=== PATIENT | male | born 1995 | race Caucasian/White ===

== ENCOUNTER 2022-10-09 16:43 | Emergency (ER) | payer SELFPAY ==
--- NOTE | ~2022-10-09 | CT_ITS ---
EXAMINATION: CT head/brain wo IV con CLINICAL INFORMATION: Reason for Exam new onset seizure COMPARISON: None. TECHNIQUE: Contiguous axial imaging was performed from the skull base to vertex without intravenous contrast. Sagittal and coronal reformatted images were obtained. This CT examination was performed using dose optimization techniques as appropriate, variously including the following: * Automated exposure control * Adjustment of mA and/or kV according to patient size (this includes techniques or standardized protocols for targeted exams where dose is matched to indication/reason for exam; i.e. extremities or head) Use of iterative reconstruction technique DLP: 752 mGy-cm FINDINGS: No acute osseous or soft tissue abnormality. The mastoid air cells and visualized portions of the paranasal sinuses are well aerated. There is no evidence of acute intracranial hemorrhage or territorial infarction. No abnormal mass effect or midline shift is seen. Cuevas to white matter differentiation is well preserved. No extra-axial fluid collections are identified. No hydrocephalus. CT/CT head/brain wo IV con IMPRESSION: 1. No acute intracranial abnormality.
[2022-10-09 16:53] VITALS: BP 142/93; BP 143/85; PULSE 107; PULSE 115; RESP 18; TEMP 36.7; O2SAT 100; BMI 23.0
--- NOTE | 2022-10-09 17:10 | PC.NURSE ---
patient a/ox4 . pupils dilated . heart rate regular at 105 beats per minute . breathing even and unlabored . lungs clear throughout . skin pink warm and dry abdomen soft . positive bowel sounds in all four quadrants . patient placed on gate agent . patient placed on seaizure precautions . patient aware of plan of care .
--- NOTE | 2022-10-09 17:11 | ED.SEIZURE ---
HPI - Seizure General Chief Complaint: Seizure Stated Complaint: From home, seizure 2 hrs ago per EMS Time Seen by Provider: 10/09/22 17:03 Source: patient Mode of arrival: EMS Limitations: no limitations History of Present Illness HPI Narrative: Patient with no significant medical history was at home when he had a dinner stone including seizure lasted for 5 minute with postictal combativeness and confusion patient fell to the ground without any significant head injury patient did not sleep well last night had some alcohol no history of use of Wellbutrin/cocaine/tramadol family history of seizures no history of significant head injury Seizure History: No Place: Home Related Data Previous Rx's Medication Instructions Recorded levetiracetam 500 mg tablet 500 mg PO BID #60 tabs 10/09/22 (Keppra) Allergies Allergy/AdvReac Type Severity Reaction Status Date / Time No Known Allergies Allergy Verified 10/09/22 17:42 Review of Systems Review of Systems: Yes all other systems are reviewed and are negative [facility] Social History Social History Smoked in Last 30 Days: No Substance Use Type: Crack/Cocaine and Marijuana Advance Directives: No Advance Directives Information Provided: No Physical Exam Vital Signs: Vital Signs: Last Vital Signs Temp 98.0 F 10/09/22 16:53 Pulse 95 10/09/22 19:43 Resp 16 10/09/22 19:43 BP 108/64 10/09/22 19:43 Pulse Ox 98 10/09/22 19:43 O2 Del Method 10/09/22 19:43 BMI result Body Mass Index 23.0 Appearance: Alert. Oriented X3. No acute distress. Eyes: PERRLA, No Nystagmus ENT: Pharynx normal. Oral Mucosa moist no tongue bite Neck: Normal inspection. Neck supple. CVS: Normal heart rate and rhythm. Pulses normal. Respiratory: No respiratory distress. Equal air entry bilateral, no wheezing/rales/rhonchi Abdomen: Soft and nontender. Bowel sounds are present, no mass palpable, no CVA tenderness Skin: Skin warm and dry. Normal skin color. Normal skin turgor. Extremities: No lower extremity edema. No calf tenderness Neuro: Oriented X 3. No motor deficit. No sensory deficit.No cerebellar signs , cranial nerves II-XII intact Medications Administered Discontinued Medications Generic Name Dose Route Start Last Admin Trade Name Freq PRN Reason Stop Dose Admin Levetiracetam 1,500 mg in 100 mls @ 400 mls/hr 10/09/22 19:10 10/09/22 19:37 Keppra IV 10/09/22 19:24 Infused ONCE ONE Infusion Medical Decision Making Medical Decision Making [facility] Narrative: Patient with new onset seizure witnessed CT scan negative lab workup negative. Patient was given Keppra started on Keppra advised to follow with neurologist likely has idiopathic seizure Lab Data [facility] Lab Attestation statement: I reviewed the patient's lab results. 10/09/22 18:24 10/09/22 18:24 Labs: Lab Results 10/09/22 10/09/22 10/09/22 Range/Units 18:24 18:24 18:24 WBC 19.9 H (4.8-10.8) X10*3/uL RBC 4.95 (4.60-5.80) X10*6/uL Hgb 14.4 (14.0-18.0) g/dl Hct 43.1 (42.0-52.0) % MCV 87.1 (80.0-98.0) fL MCH 29.1 (27.0-33.0) pg MCHC 33.4 (31.0-36.0) g/dl RDW 13.1 (11.0-16.0) % Plt Count 309 (160-400) X10*3/uL MPV 10.0 (9.4-12.4) fL Immature Gran % (Auto) 1.1 H (0.0-0.4) % Neut % (Auto) 85.3 H (45-73) % Lymph % (Auto) 6.7 L (20-40) % [place] % (Auto) 6.6 (2-11) % Eos % (Auto) 0.0 (0-4) % Baso % (Auto) 0.3 (0-2) % Lymph # (Auto) 1.3 (1.2-4.9) X10*3/uL [place] # (Auto) 1.3 H (0.1-1.2) X10*3/uL Eos # (Auto) 0.0 (0.0-0.4) X10*3/uL Baso # (Auto) 0.1 (0.0-0.2) X10*3/uL Abs Immat Gran (auto) 0.21 H (0.00-0.03) X10*3/uL Absolute Neuts (auto) 16.9 H (2.0-8.3) x10*3/uL Absolute Nucleated RBC 0.000 (0.0-0.012) X10*3/uL Nucleated RBC % (auto) 0.0 (0.0-0.2) /100WBC Sodium 138 (135-145) mmol/L Potassium 5.0 (3.3-5.1) mmol/L Chloride 101 (96-108) mmol/L Carbon Dioxide 26 (22-29) mmol/L Anion Gap 16 (12-20) BUN 10 (9-16) mg/dL Creatinine 0.81 (0.5-1.4) mg/dL Estim Creat Clear Calc 147.5 Estimated GFR > 60 Random Glucose 96 (60-115) mg/dL Calcium 9.8 (8.4-10.2) mg/dL Magnesium 2.4 (1.6-2.6) mg/dL Total Bilirubin 0.5 (0.0-1.0) mg/dL AST 19 (5-37) U/L ALT 14 (0-40) U/L Alkaline Phosphatase 57 (39-117) U/L Total Protein 7.2 (6.5-8.0) g/dL Albumin 4.9 (3.5-5.0) g/dL Ethyl Alcohol < 10 mg/dL Discharge Plan Discharge Clinical Impression: Generalized seizure Patient Disposition: Home, Self-Care Instructions: New-Onset Seizure in Adults (ED) Additional Instructions: No driving until cleared by neurologist Avoid sleep deprivation Avoid alcohol use Follow with neurologist Taking medication for seizures as advised Prescriptions: New levetiracetam [Keppra] 500 mg tablet 500 mg PO BID Qty: 60 2RF Referrals: Natacha Sneed MD [Physician] - 3 days Stand Alone Forms: Work/School Release Interventions: ED Discharge Assessment Last Done: 10/09/22 20:34 Discharge Date/Time: 10/09/22 20:36
--- OUTSIDE RECORDS SUMMARY | 2022-10-09 17:14 | XMS_ITS | Continuity of Care Document ---
:1995 Author Organization [facility] Address [address] [place] [address]- Care Team Providers Name Role Phone Zeferino PAYNE, Yadira Primary Care Physician [place] [facility] 10[place]01/20 [facility] [address] [place] [address]- Allergies, Adverse Reactions, Alerts No Known Medication Allergies Substance Reaction Severity Status NKA Active Immunizations Given and Recorded Vaccine Date Status Refusal Reason influenza virus vaccine, inactivated1 11/21/19 Given 1Result Comment: [facility]#[id number] Medications Adderall By Mouth, 2 times a day, 0 Refills, Maintenance, 08/13/15 14:36:13 Start Date: 08/13/15 Status: OrderedFlonase 50 mcg/inh nasal spray 1 sprays, Nares, Both, 2 times a day, in each nostril, # 16 Gm, 1 Refills, Maintenance, 09/15/19 10:18:00 EST, [place], [id number], 1 sprays Nares, Both 2 times a day,Instr:in each nostril, 174.3, cm, 09/15/19 9:26:00 EST, Height Start Date: 09/15/19 Status: Ordered Problem List Condition Effective Dates Status Health Status Informant Anxiety(Confirmed) Active ADHD(Confirmed) Active Marijuana use(Confirmed) Active Vomiting(Confirmed) Active Social History Social History Type Response Smoking Status Never smoker; Tobacco user i n household: No entered on: 08/13/15 Sex
--- OUTSIDE RECORDS SUMMARY | 2022-10-09 17:14 | XMS_ITS | Continuity of Care Document ---
:1995 Author Organization [facility] Address [address] [place] [address]- Care Team Providers Name Role Phone Zeferino PAYNE, Yadira Primary Care Physician Encounter [facility] [place] Date(s): 08/29/20 - 09/28/20 [facility] [address] [place] [address]- Attending Physician: Jeny Martines Admitting Physician: AdmJeny escalera Referring Physician: AdmtrJeny Allergies, Adverse Reactions, Alerts No Known Medication Allergies Substance Reaction Severity Status NKA Active Immunizations Given and Recorded Vaccine Date Status Refusal Reason influenza virus vaccine, inactivated1 11/21/19 Given 1Result Comment: [facility]#[id number] Medications Adderall By Mouth, 2 times a day, 0 Refills, Maintenance, 08/13/15 14:36:13 Start Date: 08/13/15 Status: OrderedFlonase 50 mcg/inh nasal spray 1 sprays, Nares, Both, 2 times a day, in each nostril, # 16 Gm, 1 Refills, Maintenance, 09/15/19 10:18:00 EST, [place], [id number], 1 sprays Nares, Both 2 [...]
--- OUTSIDE RECORDS SUMMARY | 2022-10-09 17:14 | XMS_ITS | Continuity of Care Document ---
:1995 Author Organization [facility] Address [address] [place] [address]- Care Team Providers Name Role Phone Christopher Alec ARTHUR Primary Care Physician Encounter [facility] [place] [id number] Date(s): 09/12/19 - 09/22/19 [facility] [address] [place] [address]- [facility] Attending Physician: Jeny Martines Admitting Physician: Admtr, Jeny Referring Physician: Admtr, Ar8 Allergies, Adverse Reactions, Alerts No Known Medication Allergies Medications Adderall By Mouth, 2 times a day, 0 Refills, Maintenance, 08/13/15 14:36:13 Start Date: 08/13/15 Status: OrderedFlonase 50 mcg/inh nasal spray 1 sprays, Nares, Both, 2 times a day, in each nostril, # 16 Gm, 1 Refills, Maintenance, 09/15/19 10:18:00 EST, [place], [id number], 1 sprays Nares, Both 2 times a day,Instr:in each nostril, 174.3, cm, 09/15/19 9:26:00 EST, Height Start Date: 09/15/19 Status: Ordered Problem List Condition Effective Dates Status Health Status Informant Vomiting(Confirmed) Active Social History Social History Type Response Smoking Status Never smoker; Tobacco user i n household: No entered on: 08/13/15 Sex
--- OUTSIDE RECORDS SUMMARY | 2022-10-09 17:14 | XMS_ITS | Continuity of Care Document ---
:1995 Author Organization [facility] Address [address] [place] [address]- Care Team Providers Name Role Phone Zeferino PAYNE, Yadira Primary Care Physician En[place] [facility] [place] Date(s): 09/03/20 - 10/03/20 [facility] [address] [place] [address]- Allergies, Adverse Reactions, Alerts No Known Medication Allergies Substance Reaction Severity Status NKA Active Immunizations Given and Recorded Vaccine Date Status Refusal Reason influenza virus vaccine, inactivated1 11/21/19 Given 1Result Comment: [facility]#[id number] Medications Adderall By Mouth, 2 times a day, 0 Refills, Maintenance, 08/13/15 14:36:13 Start Date: 08/13/15 Status: OrderedFlonase 50 mcg/inh nasal spray 1 sprays, Nares, Both, 2 times a day, in each nostril, # 16 Gm, 1 Refills, Maintenance, 09/15/19 10:18:00 EST, [place], [id number], 1 sprays Nares, Both 2 [...]
--- OUTSIDE RECORDS SUMMARY | 2022-10-09 17:14 | XMS_ITS | Continuity of Care Document ---
:1995 Author Organization [facility] Address [address] [place] [address]- Care Team Providers Name Role Phone Alec White DO Primary Care Physician [place] [facility] [place] 11/21/19 - 11/28/19 [facility] [address] [place] [address]- [place] Encounter Diagnosis Marijuana use (Discharge Diagnosis) - 11/21/19 ADHD (Discharge Diagnosis) - 11/21/19 Anxiety (Discharge Diagnosis) - 11/21/19 Attending Physician: Alec White DO Allergies, Adverse Reactions, Alerts No Known Medication Allergies Substance Reaction Severity Status NKA Active Immunizations Given and Recorded Vaccine Date Status Refusal Reason influenza virus vaccine, inactivated1 11/21/19 Given 1Result Comment: [facility]#[id number] Medications Adderall By Mouth, 2 times a day, 0 Refills, Maintenance, 08/13/15 14:36:13 Start Date: 08/13/15 Status: OrderedFlonase 50 mcg/inh nasal spray 1 sprays, Nares, Both, 2 times a day, in each nostril, # 16 Gm, 1 Refills, Maintenance, 09/15/19 10:18:00 EST, [place], [id number], 1 sprays Nares, Both 2 times a day,Instr:in each nostril, 174.3, cm, 09/15/19 9:26:00 EST, Height Start Date: 09/15/19 Status: Ordered Problem List Condition Effective Dates Status Health Status Informant Anxiety(Confirmed) Active ADHD(Confirmed) Active Marijuana use(Confirmed) Active Vomiting(Confirmed) Active Diagnosis Diagnosis Type Effective Dates Health Status Clinical In formant Service Marijuana use Discharge 11/21/19 Diagnosis ADHD Discharge 11/21/19 Diagnosis Anxiety Discharge 11/21/19 Diagnosis Procedures Procedure Date Related Diagnosis Body Site Status Appendectomy 2009 Completed Vital Signs Most recent to oldest [Reference Range]: 1 Height 175.7 cm (11/21/19 7:49 AM) Weight 66.5 kg (11/21/19 7:49 AM) Oxygen Saturation [94-100 %] 98 % (11/21/19 7:49 AM) Pulse Rate [55-90 bpm] 83 bpm (11/21/19 7:49 AM) Body Mass Index [18.5-24.99] 21.54 (11/21/19 7:49 AM) Blood Pressure [90-138/55-84 mm Hg] 108/80 mm Hg (11/21/19 7:49 AM) Blood pressure sites Arm, left (11/21/19 7:49 AM) Weight Obtained Via Standing scale (11/21/19 7:49 AM) Social History Social History Type Response Smoking Status Never smoker; Tobacco user i n household: No entered on: 08/13/15 Sex
--- OUTSIDE RECORDS SUMMARY | 2022-10-09 17:14 | XMS_ITS | Continuity of Care Document ---
:1995 Author Organization [facility] Address [address] [place] [address]- Care Team Providers Name Role Phone Alec White DO Primary Care Physician [place] [facility] [place] 01[place]20 [facility] [address] [place] [address]- [facility] Attending Physician: Alec White DO Allergies, Adverse Reactions, Alerts No Known Medication Allergies Substance Reaction Severity Status NKA Active Immunizations Given and Recorded Vaccine Date Status Refusal Reason influenza virus vaccine, inactivated1 11/21/19 Given 1Result Comment: [facility]#[id number] Medications Adderall By Mouth, 2 times a day, 0 Refills, Maintenance, 08/13/15 14:36:13 Start Date: 08/13/15 Status: OrderedFlonase 50 mcg/inh nasal spray 1 sprays, Nares, Both, 2 times a day, in each nostril, # 16 Gm, 1 Refills, Maintenance, 09/15/19 10:18:00 EST, [place], [id number], 1 sprays Nares, Both 2 [...]
--- OUTSIDE RECORDS SUMMARY | 2022-10-09 17:14 | XMS_ITS | Continuity of Care Document ---
:1995 Author Organization [facility] Address [address] [place] [address]- Care Team Providers Name Role Phone Zeferino PAYNE, Yadira Primary Care Physician En[place] [facility] [place] Date(s): 08/29/20 - 09/05/20 [facility] [address] [place], [place] [address] Encounter Diagnosis Viral illness (Discharge Diagnosis) - 08/29/20 Attending Physician: Yadira Mcgarry NP Allergies, Adverse Reactions, Alerts No Known Medication Allergies Substance Reaction Severity Status NKA Active Immunizations Given and Recorded Vaccine Date Status Refusal Reason influenza virus vaccine, inactivated1 11/21/19 Given 1Result Comment: [facility]#[id number] Medications Adderall By Mouth, 2 times a day, 0 Refills, Maintenance, 08/13/15 14:36:13 Start Date: 08/13/15 Status: OrderedFlonase 50 mcg/inh nasal spray 1 sprays, Nares, Both, 2 times a day, in each nostril, # 16 Gm, 1 Refills, Maintenance, 09/15/19 10:18:00 EST, [place], [id number], 1 sprays Nares, Both 2 times a day,Instr:in each nostril, 174.3, cm, 09/15/19 9:26:00 EST, Height Start Date: 09/15/19 Status: Ordered Problem List Condition Effective Dates Status Health Status Informant Anxiety(Confirmed) Active ADHD(Confirmed) Active Marijuana use(Confirmed) Active Vomiting(Confirmed) Active Diagnosis Diagnosis Type Effective Dates Health Status Clinical In formant Service Viral illness Discharge 08/29/20 Diagnosis Vital Signs Most recent to oldest [Reference Range]: 1 Height 175.7 cm (08/28/20 4:04 PM) Social History Social History Type Response Smoking Status Never smoker; Tobacco user i n household: No entered on: 08/13/15 Sex
--- OUTSIDE RECORDS SUMMARY | 2022-10-09 17:14 | XMS_ITS | Continuity of Care Document ---
:1995 Author Organization [facility] Address [address] [place] [address]- Care Team Providers Name Role Phone Alec White DO Primary Care Physician [id number] Date(s): 09/12/19 - 09/19/19 [facility] [address] [place] [address]- [facility] Attending Physician: Harrison VILLATORO, Mary [place] Referring Physician: Alec White DO Allergies, Adverse Reactions, Alerts No Known Medication Allergies Medications Adderall By Mouth, 2 times a day, 0 Refills, Maintenance, 08/13/15 14:36:13 Start Date: 08/13/15 Status: OrderedFlonase 50 mcg/inh nasal spray 1 sprays, Nares, Both, 2 times a day, in each nostril, # 16 Gm, 1 Refills, Maintenance, 09/15/19 10:18:00 EST, [place], [id number], 1 sprays Nares, Both 2 times a day,Instr:in each nostril, 174.3, cm, 09/15/19 9:26:00 EST, Height Start Date: 09/15/19 Status: Ordered Problem List Condition Effective Dates Status Health Status Informant Vomiting(Confirmed) Active Vital Signs Most recent to oldest [Reference Range]: 1 Height 174.3 cm (09/12/19 11:39 AM) Oxygen Saturation [94-100 %] 99 % (09/12/19 11:39 AM) Pulse Rate [55-90 bpm] 51 bpm *L* (09/12/19 11:39 AM) Blood Pressure [90-138/55-84 mm Hg] 126/88 mm Hg (09/12/19 11:39 AM) Respiratory Rate [16-30 br/min] 16 br/min (09/12/19 11:39 AM) Temperature [96.8-100.4 DegF] 98.6 DegF (09/12/19 11:39 AM) Mode of Delivery (Oxygen) Room air (09/12/19 11:39 AM) Blood pressure sites Arm, left (09/12/19 11:39 AM) Temperature Route Oral (09/12/19 11:39 AM) Social History Social History Type Response Smoking Status Never smoker; Tobacco user i n household: No entered on: 08/13/15 Sex
--- OUTSIDE RECORDS SUMMARY | 2022-10-09 17:14 | XMS_ITS | Continuity of Care Document ---
:1995 Author Organization [facility] Address [address] [place] [address]- Care Team Providers Name Role Phone ChristopherAlec cedillo DO Primary Care Physician En[place] [facility] [place] Date(s): 12/19/19 - 12/29/19 [facility] [address] [place] [address]- [facility] Attending Physician: Bobbi, Wilder8 Admitting Physician: [id number] Referring Physician: Admtr, Ar8 Allergies, Adverse Reactions, Alerts No Known Medication Allergies Substance Reaction Severity Status NKA Active Immunizations Given and Recorded Vaccine Date Status Refusal Reason influenza virus vaccine, inactivated1 11/21/19 Given 1Result Comment: [facility]#[id number] Medications Adderall By Mouth, 2 times a day, 0 Refills, Maintenance, 08/13/15 14:36:13 Start Date: 08/13/15 Status: OrderedFlonase 50 mcg/inh nasal spray 1 sprays, Nares, Both, 2 times a day, in each nostril, # 16 Gm, 1 Refills, Maintenance, 09/15/19 10:18:00 EST, [place], [id number], 1 sprays Nares, Both 2 [...]
--- OUTSIDE RECORDS SUMMARY | 2022-10-09 17:14 | XMS_ITS | Continuity of Care Document ---
:1995 Author Organization [facility] Address [address] [place] [address]- Care Team Providers Name Role Phone Alec White DO Primary Care Physician Encounter [facility] Date(s): 09/12/19 - 11/13/19 [facility] [address] [place] [address]- [facility] Attending Physician: Alec White DO Allergies, Adverse Reactions, Alerts No Known Medication Allergies Medications Adderall By Mouth, 2 times a day, 0 Refills, Maintenance, 08/13/15 14:36:13 Start Date: 08/13/15 Status: OrderedFlonase 50 mcg/inh nasal spray 1 sprays, Nares, Both, 2 times a day, in each nostril, # 16 Gm, 1 Refills, Maintenance, 09/15/19 10:18:00 EST, [place], [id number], 1 sprays Nares, Both 2 times a day,Instr:in each nostril, 174.3, cm, 09/15/19 9:26:00 EST, Height Start Date: 09/15/19 Status: Ordered Problem List Condition Effective Dates Status Health Status Informant Vomiting(Confirmed) Active Social History Social History Type Response Smoking Status Never smoker; Tobacco user i n household: No entered on: 08/13/15 Sex
--- OUTSIDE RECORDS SUMMARY | 2022-10-09 17:14 | XMS_ITS | Continuity of Care Document ---
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, Crystal Allergies, Adverse Reactions, Alerts No Known Medication Allergies Medications Adderall By Mouth, 2 times a day, 0 Refills, Maintenance, 08/13/15 14:36:13 Start Date: 08/13/15 Status: OrderedFlonase 50 mcg/inh nasal spray 1 sprays, Nares, Both, 2 times a day, in each nostril, # 16 Gm, 1 Refills, Maintenance, 09/15/19 10:18:00 EST, [place], [id number], 1 sprays Nares, Both 2 times a day,Instr:in each nostril, 174.3, cm, 09/15/19 9:26:00 EST, Height Start Date: 09/15/19 Status: Ordered Problem List Condition Effective Dates Status Health Status Informant Vomiting(Confirmed) Active Diagnosis Diagnosis Type Effective Dates Health Status Clinical Serv ice Informant Cough Discharge 09/15/19 Diagnosis Vital Signs Most recent to oldest [Reference Range]: 1 Height 174.3 cm (09/15/19 9:26 AM) Oxygen Saturation [94-100 %] 98 % (09/15/19 9:26 AM) Pulse Rate [55-90 bpm] 58 bpm (09/15/19 9:26 AM) Blood Pressure [90-138/55-84 mm Hg] 100/74 mm Hg (09/15/19 9:26 AM) Respiratory Rate [16-30 br/min] 16 br/min (09/15/19 9:26 AM) Temperature [96.8-100.4 DegF] 97.9 DegF (09/15/19 9:26 AM) Mode of Delivery (Oxygen) Room air (09/15/19 9:26 AM) Blood pressure sites Arm, left (09/15/19 9:26 AM) Temperature Route Oral (09/15/19 9:26 AM) Social History Social History Type Response Smoking Status Never smoker; Tobacco user i n household: No entered on: 08/13/15 Sex
--- OUTSIDE RECORDS SUMMARY | 2022-10-09 17:14 | XMS_ITS | Continuity of Care Document ---
:1995 Author Organization [facility] Address [address] [place] [address]- Care Team Providers Name Role Phone Alec White DO Primary Care Physician [place] [facility] [place](s): 07/17/20 - 07/24/20 [facility] [address] [place] [address] Encounter Diagnosis Migraine (Discharge Diagnosis) - 07/17/20 Attending Physician: Sarah Medrano MD Referring Physician: Alec White DO Allergies, Adverse Reactions, Alerts No Known Medication Allergies Substance Reaction Severity Status NKA Active Immunizations Given and Recorded Vaccine Date Status Refusal Reason influenza virus vaccine, inactivated1 11/21/19 Given 1Result Comment: [facility]#[id number] Medications Adderall By Mouth, 2 times a day, 0 Refills, Maintenance, 08/13/15 14:36:13 Start Date: 08/13/15 Status: OrderedFlonase 50 mcg/inh nasal spray 1 sprays, Nares, Both, 2 times a day, in each nostril, # 16 Gm, 1 Refills, Maintenance, 09/15/19 10:18:00 EST, [place], [id number], 1 sprays Nares, Both 2 times a day,Instr:in each nostril, 174.3, cm, 09/15/19 9:26:00 EST, Height Start Date: 09/15/19 Status: Ordered Problem List Condition Effective Dates Status Health Status Informant Anxiety(Confirmed) Active ADHD(Confirmed) Active Marijuana use(Confirmed) Active Vomiting(Confirmed) Active Diagnosis Diagnosis Type Effective Dates Health Status Clinical Serv ice Informant Migraine Discharge 07/17/20 Diagnosis Vital Signs Most recent to oldest [Reference Range]: 1 Height 175.7 cm (07/17/20 11:35 AM) Social History Social History Type Response Smoking Status Never smoker; Tobacco user i n household: No entered on: 08/13/15 Sex
--- OUTSIDE RECORDS SUMMARY | 2022-10-09 17:14 | XMS_ITS | Continuity of Care Document ---
:1995 Author Organization [facility] Address [address] [place] [address]- Care Team Providers Name Role Phone Christopher Alec ARTHUR Primary Care Physician Encounter [facility] Date(s): 09/15/19 - 09/25/19 [facility] [address] [place] [address]- [facility] Attending Physician: Jeny Martines Admitting Physician: Admtr, [id number] Referring Physician: Admtr, [id number] Allergies, Adverse Reactions, Alerts No Known Medication Allergies Medications Adderall By Mouth, 2 times a day, 0 Refills, Maintenance, 08/13/15 14:36:13 Start Date: 08/13/15 Status: OrderedFlonase 50 mcg/inh nasal spray 1 sprays, Nares, Both, 2 times a day, in each nostril, # 16 Gm, 1 Refills, Maintenance, 09/15/19 10:18:00 EST, [place], [id number], 1 sprays Nares, Both 2 times a day,Instr:in each nostril, 174.3, cm, 09/15/19 9:26:00 EST, Height Start Date: 09/15/19 Status: Ordered Problem List Condition Effective Dates Status Health Status Informant Vomiting(Confirmed) Active Social History Social History Type Response Smoking Status Never smoker; Tobacco user i n household: No entered on: 08/13/15 Sex
[2022-10-09 18:28] LABS: MANUAL DIFF FLAG NO
[2022-10-09 18:51] LABS: Basophils Absolute Auto 0.1 X10*3/uL (0.0-0.2); Basophils Percent Auto 0.3 % (0-2); Hematocrit 43.1 % (42.0-52.0); Hemoglobin 14.4 g/dl (14.0-18.0); Imm Gran Abs Auto 0.21 X10*3/uL (0.00-0.03); Imm Gran Pct Auto 1.1 % (0.0-0.4); Lymphocytes Absolute Auto 1.3 X10*3/uL (1.2-4.9); Lymphocytes Percent Auto 6.7 % (20-40); Mean Corpuscular HGB Conc 33.4 g/dl (31.0-36.0); Mean Corpuscular Hemoglobin 29.1 pg (27.0-33.0); Mean Corpuscular Volume 87.1 fL (80.0-98.0); Monocytes Absolute Auto 1.3 X10*3/uL (0.1-1.2); Monocytes Percent Auto 6.6 % (2-11); Neutrophils Absolute Auto 16.9 x10*3/uL (2.0-8.3); Neutrophils Percent Auto 85.3 % (45-73); Platelet Count 309 X10*3/uL (160-400); Red Blood Count 4.95 X10*6/uL (4.60-5.80); Red Cell Distribution Width 13.1 % (11.0-16.0); White Blood Count 19.9 X10*3/uL (4.8-10.8)
[2022-10-09 18:53] LABS: Alanine Aminotransferase 14 U/L (0-40); Albumin Level 4.9 g/dL (3.5-5.0); Alkaline Phosphatase 57 U/L (39-117); Anion Gap 16 (12-20); Aspartate Amino Transferase 19 U/L (5-37); Bilirubin Total 0.5 mg/dL (0.0-1.0); Blood Urea Nitrogen 10 mg/dL (9-16); Calcium 9.8 mg/dL (8.4-10.2); Carbon Dioxide 26 mmol/L (22-29); Chloride 101 mmol/L (96-108); Creatinine Clr Calc Pharmacy 147.5; Estimated Glomerular Filt Rate > 60; Glucose Random 96 mg/dL (60-115); Magnesium 2.4 mg/dL (1.6-2.6); Sodium 138 mmol/L (135-145); Total Protein 7.2 g/dL (6.5-8.0)
[2022-10-09 18:54] LABS: Ethanol < 10 mg/dL
--- NOTE | 2022-10-09 19:10 | PC.NURSE ---
RN contacted pharmacy to discuss current med order for Keppra 1500mg IV once. Pharmacy to adjust order from IVP to a hung medication.
[2022-10-09] MEDS: levETIRAcetam in NaCl (iso-os) 1,500 MG/100 ML PIGGYBACK 400 MG IV (19:22)
[2022-10-09 19:43] VITALS: BP 108/64; PULSE 95; RESP 16; O2SAT 98
--- NOTE | 2022-10-09 20:33 | PC.NURSE ---
IV line removed. Pt tolerated well. Discharge instructions reviewed with pt. Pt verbalizes understanding.
== END 2022-10-09 20:36 | disposition home or self-care (01) ==
PROVIDERS: Emergency Provider Internal Medicine
DX: G40.409 Other generalized epilepsy and epileptic syndromes, not intractable, without status epilepticus (principal); F10.90 Alcohol use, unspecified, uncomplicated; Y90.0 Blood alcohol level of less than 20 mg/100 ml
CPT/HCPCS: 36415; 70450; 80053; 82077; 83735; 85025; 96374; 99284; J1953